=== PATIENT | female | born 1980 | race Caucasian/White ===

== ENCOUNTER → 2023-04-22 07:46 | Outpatient (REF) | payer BC, SELFPAY | LOC: RAD 07:46 | PROVIDERS: ATTENDING PHYSICIAN Family Medicine | DX: R11.0 Nausea (principal) | CPT/HCPCS: 78264; A9541 ==

== ENCOUNTER → 2023-05-23 07:21 | Outpatient (REF) | payer BC, SELFPAY | LOC: HWRAD 07:21 | PROVIDERS: ATTENDING PHYSICIAN Internal Medicine Gastroenterology; FAMILY PHYSICIAN Family Medicine | DX: R11.0 Nausea (principal) | CPT/HCPCS: 76700 ==

== ENCOUNTER → 2023-06-07 06:19 | Day surgery (SDC) | payer BC, SELFPAY | LOC: GI 06:19 | PROVIDERS: ATTENDING PHYSICIAN Internal Medicine Gastroenterology | DX: R11.0 Nausea (principal); K31.7 Polyp of stomach and duodenum; K29.50 Unspecified chronic gastritis without bleeding | CPT/HCPCS: 43239; 88305; 88342 ==

== ENCOUNTER 2023-10-10 19:39 | Emergency (ER) | payer BC, SELFPAY ==
[2023-10-10 19:43] VITALS: BP 133/95
[2023-10-10 20:42] LABS: % Basophils 0.9 % (0-2); % Eosinophils 3.8 % (0-6); % Immature Granulocytes 0.5 % (0-0.5); % Monocytes 6.4 % (1.7-9.3); % Neutrophils 58.4 % (42.2-75.2); Absolute Basophils 0.1 10^3/uL (0-0.2); Absolute Eosinophils 0.4 10^3/uL (0-0.7); Absolute Immature Granulocytes 0.1 10^3/uL (0-0.05); Absolute Lymphocytes 2.8 10^3/uL (1.2-3.4); Absolute Monocytes 0.6 10^3/uL (0.1-0.6); Absolute Neutrophils 5.3 10^3/uL (1.4-6.5); Hematocrit 40.4 % (37.0-47.0); Hemoglobin 14.1 g/dL (12.0-16.0); Mean Corp Hgb Conc. 34.9 g/dL (33.0-37.0); Mean Corpuscular Hgb 29.9 pg (27.0-31.0); Mean Corpuscular Volume 85.6 fL (81.0-99.0); Mean Platelet Volume 10.1 fL (7.4-10.4); Nucleated Red Blood Cells % 0 %; Platelet Count 251 10^3/uL (130-400); Red Blood Cell Count 4.72 10^6/uL (4.20-5.40); Red Cell Dist. Width 13.4 % (11.5-14.5); White Blood Cell Count 9.2 10^3/uL (4.8-10.8)
[2023-10-10 20:45] VITALS: BP 131/100
[2023-10-10 20:53] LABS: HCG, Serum Qualitative Screen Negative
[2023-10-10 20:57] LABS: Blood Urea Nitrogen 9 mg/dl (7-17); Calcium 9.8 mg/dl (8.4-10.2); Carbon Dioxide 21 mmol/L (22-30); Chloride 106 mmol/L (98-107); Glucose 112 mg/dl (70-99); Potassium 3.9 mmol/L (3.5-5.1); Sodium 137 mmol/L (135-145); eGFR > 60.00
[2023-10-10 21:02] LABS: NT-proBNP < 20.0 pg/ml
--- NOTE | 2023-10-10 22:23 | ED.GENMED ---
History of Present Illness
General
Chief Complaint: Cough
Source: patient
Time Seen by Provider: 10/10/23 20:48
History of Present Illness
History of Present Illness:
42-year-old female with past medical history of DVT and pulmonary embolism presenting to the emergency department for evaluation after she has been experiencing a cough since the end of August, unrelieved with 3 separate antibiotics including Cefzil,
Bactrim and currently taking Augmentin, prednisone taper, albuterol nebulizers, 2 separate cough medications. Due to continued cough primary care provider wanted patient to come to the ER for further evaluation. Patient was already had a chest
x-ray which was done in early September and did not show any abnormalities and patient has had tests. No known sick contacts, recent travel. Patient denies any lower extremity edema. Not on any current blood thinners. No other concerns at this time.
Past History
Past History
ED Past Medical History: Arrthythmia (ST), HTN, Hypothyroidism and Other (Migraine headache, PE/DVT in 2006, IUD); Negative Asthma, Hypercholesterolemia or NIDDM
ED Past Surgical History: Cholecystectomy, (X 2) and Gynecological (Ovarian cyst removed)
Social History
Tobacco: Non-smoker
Alcohol: Occasional
Drug: None
Personal:
Living: with family
Employment: Employed
Family History
Family History: Other (PEs); Negative CAD
Review of Systems
Review of Systems
All Other Systems: ROS reviewed and negative except as documented in HPI and ROS
Phy Exam
Physical Exam
Physical Exam:
GENERAL: Alert , in no apparent distress, continuous nonproductive cough during the exam
EYE: Clear conjunctiva
NECK: Supple
ENT: o/p clr, mmm.
CARDIAC: Regular rate and rhythm .
LUNGS: Clear breath sounds bilaterally, no acute respiratory distress, no wheezes/rales/rhonchi
NEUROLOGICAL: Alert and oriented
SKIN: Warm and dry, skin intact.
MUSCULOSKELETAL: No edema, well perfused.
PSYCH: Normal and appropriate interaction.
Scores
Heart Failure Risk
Heart Failure Risk Score: Not Applicable
Heart Score for Chest Pain Patients
STEMI patient?: Not applicable
Withdrawal Assessment of Alcohol
Withdrawal Assessment Completed?: Not applicable
Course
Orders/Labs/Results
Orders:
Orders
10/10/23 20:19
CT Chest Pe Study Urgent
Comment:
Reason For Exam: cough x 1.5 months
Test Result ONCE
10/10/23 20:34
Basic Metabolic Panel Urgent
Complete Blood Count/With Diff Urgent
HCG, Serum Qualitative Screen Urgent
NT-proBNP Urgent
Abnormal Lab Results
10/10/23
20:34
Abs Immat Gran (auto) 0.1 H 10^3/uL
(0-0.05)
Carbon Dioxide 21 L mmol/L
(22-30)
Glucose 112 H mg/dl
(70-99)
10/10/23 20:34
10/10/23 20:34
Vital Signs
Initial and Last Documented VS:
Initial Vital Signs
Temp Pulse Resp BP Pulse Ox
97.9 F 124 24 133/95 97
10/10/23 19:43 10/10/23 19:43 10/10/23 19:43 10/10/23 19:43 10/10/23 19:43
Last Documented Vital Signs
Temp Pulse Resp BP Pulse Ox
97.9 F 82 15 131/100 98
10/10/23 19:43 10/10/23 20:46 10/10/23 20:46 10/10/23 20:45 10/10/23 20:46
MDM/Problems Addressed
Differential Diagnosis Includes:
Pulmonary embolism, bronchitis, pneumonia, malignancy
MDM/Problems Addressed:
42-year-old female presenting to the emergency department for evaluation of persistent cough, has been on multiple medications at home without any relief. Symptoms been ongoing for a little over 1 month. Patient has had a negative outpatient
workup thus far. Due to her history of PE combined with persistent cough and tachycardia on arrival CTA of the chest was added to rule out PE. Disposition pending
Chronic conditions affecting care: Other (History of pulmonary embolism)
*Radiology
Radiology exam reviewed: radiology read reviewed
*Pulse Oximetry
Patient hypoxic: no
*Critical Care Note
Total Time (30-74mins, 75-104mins- exclusive of procedures): Not Applicable
Patient Management
Discussion with other providers: PCP
Escalation/DeEscalation of care consider admission/obs:
Patient CT of the chest shows no acute pulmonary embolism. There are no acute infectious etiologies seen either. Incidental findings were noted on previous imaging studies. I did notify patient's primary care provider of the findings and he will
follow-up with the patient on an outpatient basis. New prescription for Medrol Dosepak and nebulizer sent to patient's pharmacy.
ED Attending Note
-
Portions of this chart may have been created with voice recognition software.� Occasional wrong word or��sound alike� substitutions may have occurred due to the inherent limitations of voice recognition software.
Discharge Plan
Departure
Patient Disposition: Home (Routine Discharge)
Date of Disposition: 10/10/23
Time of Disposition: 22:23
Patient with high blood pressure during this ER visit?: No
Discharge Problem:
Cough
Instructions: Cough, Adult (DC)
Prescriptions:
New
methylprednisolone [Medrol (Chuck)] 4 mg tablets,dose pack
4 mg PO DIRECTED Qty: 21 0RF
ipratropium-albuterol 0.5 mg-3 mg(2.5 mg base)/3 mL solution for nebulization
3 ml inhalation Q8H PRN (Reason: shortness of breath) Qty: 90 0RF
No Action
rivaroxaban [Xarelto] 20 MG tablet
20 mg PO QPM
levothyroxine 175 MCG tablet
175 mcg PO DAILY@0700
metoprolol succinate 50 MG tablet extended release 24 hr
50 mg PO BID
zolpidem 5 MG tablet
5 mg PO HSPRN PRN (Reason: INSOMNIA)
Patient Comments:
02/27/21- PT LAST PICKED UP 02/18/21#10
azithromycin 250 MG tablet
250 mg PO DAILY Qty: 6 0RF
Referrals:
Nilay Alberto DO [Family Provider] -
Interventions
Interventions:
*Risk Screen - Suicide Last Done: 10/10/23 19:43
*General Assessment Last Done: 10/10/23 19:43
*Neglect/Abuse Screening Last Done: 10/10/23 19:43
ED- Fall Risk Assessment Last Done: 10/10/23 19:43
*ED COVID-19 Vaccine History Last Done: 10/10/23 19:43
ED- Pulmonary Assessment Last Done: 10/10/23 20:46
Discharge Date and Time
Print Language: ALBANIAN
[2023-10-10 22:35] VITALS: BP 117/84
== END 2023-10-10 22:40 | disposition home or self-care (01) ==
LOC: EMR 19:39
PROVIDERS: Physician Assistant Medical; EMERGENCY PHYSICIAN Emergency Medicine; FAMILY PHYSICIAN Family Medicine
DX: R05.9 Cough, unspecified (principal); I10 Essential (primary) hypertension; E03.9 Hypothyroidism, unspecified; E11.9 Type 2 diabetes mellitus without complications; Z79.2 Long term (current) use of antibiotics; Z86.711 Personal history of pulmonary embolism; Z86.718 Personal history of other venous thrombosis and embolism; Z90.49 Acquired absence of other specified parts of digestive tract
CPT/HCPCS: 99284; 71275; 80048; 83880; 84703; 85025; Q9967

== ENCOUNTER → 2023-12-12 07:28 | Outpatient (REF) | payer BC, SELFPAY | LOC: WDC 07:28 | PROVIDERS: ATTENDING PHYSICIAN Nurse Practitioner Family; FAMILY PHYSICIAN Family Medicine | DX: Z12.31 Encounter for screening mammogram for malignant neoplasm of breast (principal) | CPT/HCPCS: 77063; 77067 ==

== ENCOUNTER → 2024-01-03 14:02 | Outpatient (REF) | payer BC, SELFPAY | LOC: HWRAD 14:02 | PROVIDERS: ATTENDING PHYSICIAN Nurse Practitioner Family; FAMILY PHYSICIAN Family Medicine | DX: R10.2 Pelvic and perineal pain (principal) | CPT/HCPCS: 76830; 76856 ==

== ENCOUNTER → 2024-07-22 15:16 | Outpatient (REF) | payer BC, SELFPAY | LOC: HWRAD 15:16 | PROVIDERS: ATTENDING PHYSICIAN Nurse Practitioner Adult Health; FAMILY PHYSICIAN Family Medicine | DX: K59.00 Constipation, unspecified (principal) | CPT/HCPCS: 74018 ==

== ENCOUNTER → 2025-01-26 07:44 | Outpatient (REF) | payer BC, SELFPAY | LOC: HWRAD 07:44 | PROVIDERS: ATTENDING PHYSICIAN Obstetrics & Gynecology; FAMILY PHYSICIAN Family Medicine | DX: T83.32XA Displacement of intrauterine contraceptive device, initial encounter (principal) | CPT/HCPCS: 76830; 76856 ==

== ENCOUNTER → 2025-01-27 18:53 | Outpatient (REF) | payer BC, SELFPAY | LOC: WDC 18:53 | PROVIDERS: ATTENDING PHYSICIAN Obstetrics & Gynecology; FAMILY PHYSICIAN Family Medicine | DX: Z12.31 Encounter for screening mammogram for malignant neoplasm of breast (principal) | CPT/HCPCS: 77063; 77067 ==

== ENCOUNTER → 2025-01-29 22:00 | Outpatient (REF) | payer BC, SELFPAY | LOC: DHSLP 22:00 | PROVIDERS: ATTENDING PHYSICIAN Internal Medicine; FAMILY PHYSICIAN Family Medicine | DX: G47.30 Sleep apnea, unspecified (principal); R06.83 Snoring | CPT/HCPCS: 95810 ==

== ENCOUNTER → 2025-01-30 07:00 | Outpatient (REF) | payer BC, SELFPAY | LOC: DHSLP 07:00 | PROVIDERS: ATTENDING PHYSICIAN Internal Medicine; FAMILY PHYSICIAN Family Medicine | DX: G47.419 Narcolepsy without cataplexy (principal) | CPT/HCPCS: 95805 ==